=== PATIENT | female | born 1995 | race Caucasian/White ===

== ENCOUNTER 2017-06-28 20:11 | Emergency (ER) | payer BC ==
[~2017-06-28] VITALS: Ht 167.6 cm; Wt 90.7 kg
[2017-06-28 20:24] VITALS: BP 147/73
[2017-06-28] MEDS ORDERED: ACETAMINOPHEN EXTRA STRENGTH 500 MG TAB ONE (20:38)
--- NOTE | 2017-06-28 23:20 | NUR ---
Patient ambulated to [facility].
--- NOTE | 2017-06-28 23:43 | NUR ---
Dr. Parker evaluating patient.
[2017-06-29 00:50] VITALS: BP 136/67
--- NOTE | 2017-06-29 00:50 | NUR ---
Patient discharged with v/s stable. Written and verbal after care instructions given and explained. Patient alert, oriented and verbalized understanding of instructions. Ambulatory with steady gait. All questions addressed prior to discharge. ID band removed. Patient advised to follow up with PMD. Rx of Phenergan DM and Keflex given. Patient educated on indication of medication including possible reaction and side effects. Opportunity to ask questions provided and answered.
== END 2017-06-29 00:50 | disposition home or self-care (01) ==
LOC: MED 20:11
DX: J03.90 Acute tonsillitis, unspecified (principal); Z88.8 Allergy status to other drugs, medicaments and biological substances
CPT/HCPCS: 36415; 81025; 99283